=== PATIENT | male | born 1950 ===

== ENCOUNTER 2019-06-01 10:05 | Outpatient (CLI) | payer MEDICARE ==
--- NOTE | 2019-06-01 13:53 | MRI ---
MRI CERVICAL SPINE WITHOUT CONTRAST: INDICATIONS: Cervical radiculopathy. FINDINGS: The cervical vertebrae maintain height and alignment. Vertebral body signal is normally maintained. T here is mild disk space loss at the C5-C6 level. At C2-C3 mild to moderate posterior disk bulge and spondylosis is present, flattening the thecal sac and abutting the anterior cord. At C3-C4 posterior disk bulge and spondylosis abuts and mildly compr esses the anterior cord. The foramina appear patent. At C4-C5 slight posterior listhesis is noted. There is a posterior disk bulge/protrusion with spondyl osis. These changes result in cord compression and moderately severe cervical canal stenosis. The for robert appear patent. At C5-C6 posterior disk spondylosis impinge on and mildly compress the anterior cord. Mild foraminal encroachment due to uncinate hypertrophy. At C6-C7 no significant disk bulge or spondylosis. Mild left foraminal encroachment due to uncinate h ypertrophy. Cord signal appears normal without evidence of myelomalacia. IMPRESSION: Severe cervical canal stenosis at C4-C5 with severe cord compression. There is cord impingement at C3 -C4 and at C5-C6, as described above. POS: [facility]
== END 2019-06-01 10:06 | disposition home or self-care (01) ==
LOC: BICMRI 10:05
PROVIDERS: ATTEND Anesthesiology Pain Medicine
DX: M54.12 Radiculopathy, cervical region (principal); M48.02 Spinal stenosis, cervical region; S14.104A Unspecified injury at C4 level of cervical spinal cord, initial encounter
CPT/HCPCS: 72141